=== PATIENT | male | born 1935 | race Caucasian/White ===

== ENCOUNTER 2017-06-23 09:02 | Inpatient (IN) | payer MEDICARE, OTHER ==
[2017-06-11 10:41] LABS: ABSOLUTE BASOPHILS 0.1 thou/uL (0.0-0.2); ABSOLUTE EOSINOPHILS 0.1 thou/uL (0.0-0.7); ABSOLUTE LYMPHOCYTES 1.6 thou/uL (0.8-5.3); ABSOLUTE MONOCYTES 0.5 thou/uL (0.0-1.2); ABSOLUTE NEUTROPHILS 3.6 thou/uL (1.6-8.1); EOSINOPHILS 2.4 %; HEMATOCRIT 46.8 % (42.0-52.0); HEMOGLOBIN 16.1 gm/dL (14.0-18.0); LYMPHOCYTES 26.9 %; MCH 30.4 pg (26.0-34.0); MCHC 34.4 g/dL (28.0-37.0); MCV 88.4 fL (80.0-100.0); MONOCYTES 8.6 %; MPV 8.9 fl. (7.2-11.1); NUCLEATED RBCS 0 /100WBC; PLATELET COUNT* 107 thou/uL (150-400); POLYS 61.1 %; RDW-CV 13.6 % (10.5-14.5); WBC 5.8 thou/uL (4.0-11.0)
[2017-06-11 10:49] LABS: APTT 29.9 Seconds (25.0-31.3); INR 1.1
[2017-06-11 10:58] LABS: ALBUMIN 3.9 g/dL (3.4-5.0); CALCIUM 8.6 mg/dL (8.5-10.1); CREATININE 1.1 mg/dL (0.6-1.3); POTASSIUM 4.7 mmol/L (3.5-5.1); TOTAL BILIRUBIN 0.6 mg/dL (<0.1-1.0); TOTAL PROTEIN 6.8 g/dL (6.4-8.2)
[2017-06-11 11:47] LABS: ESR (SEDRATE) 3 mm/hr (0-20)
[~2017-06-23] VITALS: Ht 177.8 cm; Wt 81.6 kg
[~2017-06-23 09:02] MED LIST: ATORVASTATIN CA40 MG PO; CARDIZEM CD120 MG PO; CENTRUM MEN'S1 EACH PO; COQ-10100 MG PO; ELIQUIS5 MG PO; FLECAINIDE ACET50 M1 PO; NORCO 5-325 TA1 EACH PO; OSTERA TABLET1 EAC1 PO; PREDNISONE 10 M10 MG PO; PRINIVIL10 MG PO; TYLENOL EXTRA500 MG PO; VIAGRA100 MG PO; VITAMINC500 PO
[2017-06-23 11:00] VITALS: BP 154/99
[2017-06-23 16:38] VITALS: BP 129/67
--- NOTE | 2017-06-23 17:40 | NUR ---
PATIENT CAME TO THE FLOOR FROM SURGERY VIA BED IN STABLE CONDITION. ASSESSMENT AND EDUCTION DONE FOR PATIENT AND FAMILY WITH QUESTIONS ANSWERED. PATIENT HAVINS SOME PAIN AND ITCHING AFTER SURGERY, TRYING TO AVOID MEDICATIONS AT THIS TIME FOR RELIEF SINCE SO MUCH WAS GIVEN IN PACU. FAMILY IS AT BEDSIDE, CALL LIGHT IS IN REACH AND BED ALARM IS ON. CONTINOUS PULSE OXIMETER IS IN PLACE. WILL CONTINUE TO MONITOR.
[2017-06-23 21:00] VITALS: BP 135/67
[2017-06-23 23:47] VITALS: BP 129/73
[2017-06-24 03:40] VITALS: BP 124/61
[2017-06-24 04:35] LABS: HEMATOCRIT 40.9 % (42.0-52.0); HEMOGLOBIN 14.1 gm/dL (14.0-18.0)
--- NOTE | 2017-06-24 08:03 | NUR ---
PATIENT SLEPT WELL THROUGHOUT THE NIGHT. PAIN CONTROLLED WITH IV AND ORAL MEDICATIONS. PATIENT HAS SOME ITCHING THAT HE BELIEVED WAS FROM THE IV PAIN MEDICATION. NOTIFIED AND NEW ORDERS RECEIVED. BENADRYL GIVEN FOR ITCHING. PATIENT VOIDING ADEQUATELY USING URINAL. DRESSING TO RIGHT KNEE IS C/D/I AND SCD'S IN PLACE. VSS ON 2L 02 VIA NASAL CANNULA AND CAPNO. PATIENT INSTRUCTED TO USE CALL LIGHT WHEN NEEDING ASSISTANCE. HOURLY ROUNDS MADE. WILL CONTINUE WITH PLAN OF CARE AND NURSING TO MONITOR.
--- NOTE | 2017-06-24 08:05 | NUR ---
RECEIVED REPORT. ASSUMED CARE OF PT AT 0730. VSS. PT ALERT AND ORIETNED X4. PT TITRATED TO RA THIS AM IV SALINE LOCKED. PT REPORTS MILD DISCOMFORT TO RIGHT KNEE BUT DENIES NEED FOR PAIN MEDS AT THIS TIME. PT IS EAGER TO DISCHARGE TODAY. PT AND SPOUSE INFORMED OF PLAN OF CARE. THEY COMMUNICATE UNDERSTANIDNG. GENE HOSE IN PLACE, SCDS IN PLACE. PT SITTIN UP EATING BREAKFAST. CALL LIGHT IS WITHIN REACH. WILL CONTINUE TO MOTNIOR FOR DURAITON OF SHIFT.
[2017-06-24 08:30] VITALS: BP 136/67
--- NOTE | 2017-06-24 09:27 | NUR ---
RECIEVED O.T. EVAL AND TX ORDER. WILL DEFER TO P.T. AND NURSING AT THIS TIME. PLEASE ORDER FURTHER O.T. SERVICES IF NEEDED.
[2017-06-24 11:45] VITALS: BP 136/67
--- NOTE | 2017-06-24 12:23 | NUR ---
PT.UP IN CHAIR,EATING LUNCH. AND DAUGHTER AT BEDSIDE. HIS CAN ASSIST HIM WHEN HE GOES HOME. SHE WILL BE WITH HIM 02/09 FOR THE FIRST SEVERAL DAYS. HE HAS A WALKER THAT IS IN THE ROOM. THERAPY MADE SURE IT WAS THE RIGHT HEIGHT FOR HIM. HE IS NORMALLY INDEPENDENT AT HOME. HE NORMALLY TAKES ELIQUIS 5MG AT HOME BID AND HAS THEM AT HOME ALREADY. HE PLANS ON DISCHARGING TODAY AFTER HIS AFTERNOON THERAPY SESSION AND COMING TO OUTPT.THERAPY HERE AT THE HOSPITAL.
[2017-06-24 13:42] VITALS: BP 136/67
[2017-06-24] MEDS ORDERED: OXYCODONE HCL 55 MG PO (13:42)
--- NOTE | 2017-06-24 14:36 | NUR ---
CAME TO NURSES STATION, ASKING IF PT.COULD HAVE HOME HEALTH INSTEAD OF OUTPT. THEY CHOSE [facility] FOR HOME HEALTH. OTTONIEL SPOKE WITH [facility] AND FAXED HER ORDERS. NOTIFIED G[facility] THAT PT.HAD CHOSEN TO DO HOME HEALTH INSTEAD OF OUTPT.RIGHT AWAY.
--- NOTE | 2017-07-09 06:50 | OP ---
[facility] [address] [place] [address] OPERATIVE REPORT Name: DREW HAMMOND Room: [address]#: [id number] Admission: 06/23/17 Attend Phys: Nathaniel Andrade Discharge: 06/24/17 Date of : 33 Report #: [id number] THIS REPORT FOR: //name// CC: Earnest Rodriguez DICTATED BY: Franklin Villatoro DO DATE OF SERVICE: 06/23/2017 DIAGNOSIS: Right knee degenerative joint disease. PROCEDURE: Right total knee arthroplasty. SURGEON: Felipe Bains DO ASSISTANTS: 1. Franklin Villatoro DO 2. Brendon Marc DO ANESTHESIA: General and regional block. ESTIMATED BLOOD LOSS: 125 mL. SPECIMENS: None. COMPLICATIONS: None. CONDITION: The patient is stable to PACU. ORTHOPEDIC IMPLANTS: 1. Biomet Vanguard size 65 CR femur. 2. Biomet Vanguard size 79 tibial baseplate. 3. Biomet Vanguard 10 mm polyethylene insert. 4. One bag Palacos bone cement. INDICATIONS FOR PROCEDURE: The patient is an 81-year-old male with severe osteoarthritis of the right knee. He has failed conservative measures in the form of physical therapy and activity modifications. He is of appropriate weight. He is on steroid injections. He continues to have pain. He has severe osteoarthritis on imaging with complete obliteration in the medial joint space. It was recommended he would be a candidate for right total knee arthroplasty. All risks, benefits, complications and indications were reviewed with the patient [place] [address] OPERATIVE REPORT Name: MANISHDREW Room: [address] IN [facility]#: [id number] Admission: 06/23/17 Attend Phys: Nathaniel Andrade Discharge: 06/24/17 Date of : 33 Report #: [id number] DESCRIPTION OF PROCEDURE: The patient was brought to the operative suite, placed supine on a well-padded table. Right lower extremity was sterilely prepped and draped in a standard fashion. Time-out was taken to ensure correct patient, procedure, operative site and antibiotics had been given in the form of Ancef 2 grams prior to incision. Everybody in the room was in agreeance, so at that time, a 10 blade scalpel was used to make a skin incision over the anterior aspect of the knee through skin and subcutaneous tissue. Medial and lateral subcutaneous flaps were developed. A second knife was used to perform a medial parapatellar arthrotomy. Anterior horns of medial and lateral menisci were excised as well as excess Hoffa's fat pad. Patella was everted. The knee was brought into deep flexion. A drill was used to find the intramedullary canal of the femur. Intramedullary distal femoral cutting guide was used to make a little bone resection from the distal femur set at 5 degrees valgus. Once this was done, extramedullary tibial guide was pinned into place on the tibial crest and medial third of the tibial tubercle. An 8 mm resection was taken off the high lateral side of the tibia. Once this was done, a 10 blade spacer fit adequately with some slight release into the MCL with an 18 gauge needle where it will have equal varus valgus balancing with a 10 block. We then proceeded to size our femur to a size 65. We used a 4-in-1 cutting block. Once these cuts were made, all excess osteophytes were removed with a rongeur. A Bovie electrocautery was used to excise the PCL on the medial and lateral menisci. At that point in time, we sized our tibia to a size 79. We placed our trial femur and a 10 mm trial spacer with excellent range of motion, excellent stability through mid-flexion with full range of motion. We denervated the patella, elected not to resurface it due to the cartilage that was still present. We then prepared our distal femur and tibia with the drill and punch and pulsatile lavaged the bone and cement was mixed on the back table in the standard fashion. We then carried cement, first at the tibia, followed by the femur. We elected to choose a size 10 mm final polyethylene spacer. This was inserted. The knee was then thoroughly irrigated. One gram of vancomycin powder was placed in the knee. The knee was brought into 90 degrees of flexion and closed with #1 Vicryl, followed by #1 Stratafix. It was once again irrigated. A 2-0 Monocryl subcutaneously, followed by a running 3-0 Stratafix and Exofin glue were used to close the knee. Mepilex dressing, 4 x 4s, soft roll and Moy bandage were applied and the patient awoke from anesthesia and brought to the PACU in stable condition. <ELECTRONICALLY SIGNED> By: Kostas Henderson DO 07/09/17 [id number] [id number] Bains DO /debora
== END 2017-06-24 16:04 | disposition home health service (06) | DRG 470 ==
LOC: M.PRE 09:02 → M.ORTHSURG 09:58 → M.TBA 09:58 → M.PRE 10:59 → M.ORTHSURG 16:24
PROVIDERS: Orthopaedic Surgery; ADMIT Internal Medicine
PROC: 0SRC0J9 Replacement of Right Knee Joint with Synthetic Substitute, Cemented, Open Approach (ICD-10-PCS; principal; 2017-06-23)
DX: M17.11 Unilateral primary osteoarthritis, right knee (principal); Z96.652 Presence of left artificial knee joint; Z96.1 Presence of intraocular lens; I48.91 Unspecified atrial fibrillation; I10 Essential (primary) hypertension; E78.5 Hyperlipidemia, unspecified; Z79.01 Long term (current) use of anticoagulants; Z88.2 Allergy status to sulfonamides; Z79.899 Other long term (current) drug therapy; Z95.0 Presence of cardiac pacemaker

== ENCOUNTER → 2017-07-03 | Outpatient (CLI) | payer MEDICARE, OTHER ==
[~2017-07-03] MED LIST changes: +OXYCODONE HCL 55 MG PO
== END ==
LOC: M.ULTRA 16:30
DX: M79.661 Pain in right lower leg (principal); M79.89 Other specified soft tissue disorders